=== PATIENT | male | born 1990 | race Caucasian/White ===

== ENCOUNTER 2017-01-20 10:09 | Emergency (ER) | payer BC, OTHER ==
[2017-01-20] MEDS ORDERED: DEXAMETHASONE 4 MG TAB PO ONE (10:44)
--- NOTE | 2017-01-20 10:44 | EDPHY ---
H & P Stated Complaint: Injured L mid pain after he sneezed;hurts to breathe HPI/ROS: CHIEF COMPLAINT: Back pain HISTORY OF PRESENT ILLNESS: Patient notes pain on the left middle back, lateral of midline. This started earlier this morning when he sneezed a work. Sudden onset of pain. It is moderate to severe. It is worse with inspiration and every breath intake. No midline bony tenderness. No trauma to the back. No numbness or tingling of the lower extremities or perineum. No incontinence of bowel or bladder. No extremity motor changes. No other associated complaints or modifying factors. No medical history or medications. PRIOR ORTHO INJURIES: None ESTABLISHED ORTHOPEDIST: None REVIEW OF SYSTEMS: Ten systems reviewed and are negative unless otherwise noted in the HPI EXAMINATION General Appearance: Alert, no distress Cardiovascular: Pulses normal throughout. Symmetric DP and PT pulses Brisk cap refill Back: Tenderness to palpation over ribs 9 through 11 on the left. No midline tenderness at any level the spine. No crepitus, step-off or deformity. Range of motion is intact but limited due to pain. Mild spasm noted on the left thoracic back Neurological: A&O, sensory symmetric, strength symmetric. Symmetric patellar reflexes at 2+. Skin: Warm and dry, no rash. No lacerations or abrasions Extremities: Nontender, no pedal edema Psychiatric: Mood and affect normal DIFFERENTIAL DIAGNOSES: Including but not limited to muscular strain, sprain, costochondritis, intercostal strain, rib fracture MDM: 10:40 a.m. Left lower back pain over the ribs 10 and 11. No direct trauma. Lungs are clear in all juarez. X-ray was ordered prior to my examination and is pending. No midline bony tenderness. No evidence of cauda equina or acute cord compression. I have reviewed the x-ray without the aid of the radiologist. No acute findings. Lungs are well aerated without pneumothorax. 10:50 a.m. X-ray has been read by radiologist as normal. No acute findings. Discharged patient home with 1 dose of Decadron here, instructions to take anti- inflammatories [id number], and a prescription of Flexeril. He is to follow up with his work comp clinic for definitive care. Light duty in the interim. He is comfortable this plan and discharged home stable condition. ED Precautions: Worsening pain. Erythema, edema, cyanosis, pallor, paresthesia or anesthesia. SUPERVISION: This patient was independently evaluated without direct examination by the attending physician. Case was discussed with attending physician. Source: Patient Exam Limitations: No limitations - Personal History Current Tetanus Diphtheria and Acellular Pertussis (TDAP): Yes Constitutional: Initial Vital Signs Temperature (C) 97.5 F 01/20/17 10:10 Heart Rate 84 01/20/17 10:10 Respiratory Rate 18 01/20/17 10:10 Blood Pressure 143/93 H 01/20/17 10:10 O2 Sat (%) 98 01/20/17 10:10 O2 Delivery Mode Room Air Allergies/Adverse Reactions: nickel Allergy (Verified 01/20/17 10:13) nickel Allergy (Uncoded 01/20/17 10:13) Home Medications: Medication Instructions Recorded Cyclobenzaprine [Flexeril 10 MG 10 mg PO TID PRN #15 tab 01/20/17 (*)] Medical Decision Making - Diagnostics Imaging Results: Imaging Impressions Chest X-Ray 01/20/17 10:15 Impression: Normal. Departure - Departure Disposition: Home, Routine, Self-Care Clinical Impression: Acute thoracic myofascial strain Qualifiers: Encounter type: initial encounter Qualified Code(s): S29.019A - Strain of muscle and tendon of unspecified wall of thorax, initial encounter Condition: Good Instructions: Costochondritis (ED), Thoracic Back Strain (ED) Additional Instructions: 1. Ibuprofen 600-800 mg every 6-8 hours as needed 2. Flexeril as prescribed as needed 3. Follow up with primary care physician 4. Return here for worsening pain, numbness or tingling, weakness, incontinence Referrals: Harpreet Baker MD [Medical Doctor] - As per Instructions Stand Alone Forms: Work Limited Duty, Work Comp Follow Up, Work Excuse Prescriptions: Cyclobenzaprine [Flexeril 10 MG (*)] 10 mg PO TID PRN #15 tab PRN Reason: Spasms
[2017-01-20 11:10] VITALS: BP 130/74; PULSE 70; RESP 14; TEMP 98.4; O2SAT 94
== END 2017-01-20 11:08 | disposition home or self-care (01) ==
DX: S29.019A Strain of muscle and tendon of unspecified wall of thorax, initial encounter (principal); X58.XXXA Exposure to other specified factors, initial encounter; Y92.69 Other specified industrial and construction area as the place of occurrence of the external cause; Y99.0 Civilian activity done for income or pay; Y93.89 Activity, other specified